=== PATIENT | male | born 1985 | race Caucasian/White ===

== ENCOUNTER 2022-03-12 04:28 | Emergency (ER) | payer SELFPAY ==
[~2022-03-12] VITALS: Ht 165.1 cm; Wt 77.1 kg
[2022-03-12 04:33] VITALS: BP 124/73
--- NOTE | 2022-03-12 04:36 | NUR ---
Patient ambulated to bed 3.
--- NOTE | 2022-03-12 04:44 | NUR ---
37 Y/O MALE BIBS FRON HOME, C/O Atypical chest pain x today. Patient reported, woke up and had chest pressure. PT REPORTS NO PAIN, ONLY PRESSURE. A/OX4, GCS-15; STATES SOB, UNLABORED BREATHING, SPEAKING IN FULL SENTENCES; AMBULATORY W/O ASSISTANCE; SKIN PINK/DRY/WARM; DENIES N/V/D, COUGH, OR FEVER. PMHx: DENIES
--- NOTE | 2022-03-12 04:45 | NUR ---
Dr. Cooney examining patient.
--- NOTE | 2022-03-12 04:47 | NUR ---
XRAY AT BEDSIDE
[2022-03-12 07:07] LABS: BASOPHILS % (AUTO) 0.4 % (0.0-2.0); EOSINOPHILS # (AUTO) 0.1 K/uL (0-0.4); EOSINOPHILS % (AUTO) 0.7 % (0.0-4.0); HEMATOCRIT 41.6 % (36-52); HEMOGLOBIN 13.9 g/dL (12.0-18.0); LYMPHOCYTES # (AUTO) 1.5 K/uL (2.0-11.5); LYMPHOCYTES % (AUTO) 16.4 % (20.5-51.1); MEAN CORPUSCULAR HEMOGLOBIN 27 pg (27-31); MEAN CORPUSCULAR HGB CONC 33 g/dL (33-37); MONOCYTES # (AUTO) 0.9 K/uL (0.8-1.0); MONOCYTES % (AUTO) 9.7 % (1.7-9.3); NEUTROPHILS # (AUTO) 6.8 K/uL (1.8-7.7); NEUTROPHILS % (AUTO) 72.8 % (42.2-75.2); PLATELET COUNT (AUTO) 186 K/uL (140-450); RED BLOOD CELL COUNT(AUTO) 5.07 MIL/uL (4.20-6.10); RED CELL DISTRIBUTION WIDTH 14.2 % (11.6-13.7); WHITE BLOOD COUNT (AUTO) 9.3 K/uL (4.8-10.8)
[2022-03-12 07:24] LABS: LIPASE 92 U/L (73-393)
[2022-03-12 07:31] LABS: ALBUMIN 3.7 g/dL (3.4-5.0); CARBON DIOXIDE 27.3 mmol/L (21-32); CREATININE 0.9 mg/dL (0.6-1.3); POTASSIUM 4.3 mmol/L (3.5-5.1); TOTAL BILIRUBIN 0.2 mg/dL (0.0-1.0)
--- NOTE | 2022-03-12 08:00 | NUR ---
PT ON BEDSIDE MONITOR . 20G IV CATH PLACED IN R AC
--- NOTE | 2022-03-12 08:00 | NUR ---
37YR OLD MALE BIB SELF C/O CHEST "PRESSURE" DENIES PAIN. PT STATES WAS SOB WHEN ARRIVAL TO ED, CURRENTLY DENIES SOB AND CP. [id number] NO DISTRESS NOTED. PT WOKE UP EARLY THIS MORNING WITH PRESSURE MIDDLE OF CHEST. PT ON BEDSIDE MONITOR. HOB ELEVATED. 20G IV CATH PLACED R AC. 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 NKDA UNKNOWN CARDIAC ARR
[2022-03-12 09:40] VITALS: BP 134/69
--- NOTE | 2022-03-12 09:40 | NUR ---
Patient discharged with v/s stable. Written and verbal after care instructions given and explained. Patient verbalized understanding. Ambulatory with steady gait. All questions addressed prior to discharge. Advised to follow up with PMD.
--- NOTE | 2022-03-12 09:45 | NUR ---
The patient's care was reviewed and supervised by Imani Mcclellan RN.
== END 2022-03-12 09:40 | disposition home or self-care (01) ==
LOC: MED 04:28
DX: R07.9 Chest pain, unspecified (principal)
CPT/HCPCS: 36415; 71045; 80053; 83690; 83880; 84484; 85025; 93005; 99285; Q0092

== ENCOUNTER 2023-09-18 12:00 | Emergency (ER) | payer BC ==
[~2023-09-18] VITALS: Ht 165.1 cm; Wt 86.2 kg
[2023-09-18 12:13] VITALS: BP 141/90; PULSE 90; RESP 19; TEMP 97.6; O2SAT 98
[2023-09-18] MEDS ORDERED: LISI40TA12 PO (14:11)
[2023-09-18 16:03] VITALS: O2SAT 98
== END 2023-09-18 14:48 | disposition home or self-care (01) ==
LOC: MED 12:00
DX: I10 Essential (primary) hypertension (principal); Z79.899 Other long term (current) drug therapy
CPT/HCPCS: 93005; 99283